=== PATIENT | female | born 1995 | race Two or more races ===

== ENCOUNTER 2018-04-05 11:19 | Emergency (ER) | payer OTHER ==
[~2018-04-05] VITALS: Ht 149.9 cm; Wt 73.0 kg
[2018-04-05] MEDS ORDERED: KETOROLAC 30MG/ML VIAL IM ONE (13:00)
[2018-04-05 13:22] VITALS: BP 106/59
== END 2018-04-05 13:22 | disposition home or self-care (01) ==
LOC: ER 13:06
DX: N64.4 Mastodynia (principal)
CPT/HCPCS: 96372; 99283; J1885

== ENCOUNTER 2020-07-29 12:49 | Emergency (ER) | payer SELFPAY ==
[~2020-07-29] VITALS: Ht 152.4 cm; Wt 75.0 kg
[2020-07-29] MEDS ORDERED: SODIUM CHLORIDE 0.9% 1,000 ML IV ONE (13:30)
[2020-07-29] MEDS ORDERED: KETOROLAC 30MG/ML VIAL IV ONE (13:30)
[2020-07-29 13:47] VITALS: BP 115/56
[2020-07-29 14:06] LABS: BASOPHILS % 0.4 % (0.0-2.0); EOSINOPHILS % 0.3 % (0.0-5.0); HEMATOCRIT. 40.5 % (36.0-48.0); LYMPHOCYTES % 29.6 % (20.0-50.0); MEAN CORPUSCULAR HEMOGLOBIN 30.7 pg (28.0-32.0); MEAN CORPUSCULAR VOLUME 88.4 fL (81.0-99.0); MEAN PLATELET VOLUME 11.9 fl (7.4-10.4); MONOCYTES % 7.5 % (2.0-8.0); NEUTROPHILS % 62.2 % (40.0-76.0); PLATELET 178 x1000/uL (130-400); RED BLOOD CELL COUNT 4.58 mill/uL (4.2-5.4); RED CELL DISTRIBUTION WIDTH 12.6 % (11.6-14.6)
[2020-07-29 14:10] LABS: CHLORIDE 106 mEq/L (98-107)
[2020-07-29 14:21] LABS: B-HCG QUANTITATIVE < 1 mIU/mL (<3)
[2020-07-29] MEDS ORDERED: NAPR-1176 PO (14:44)
== END 2020-07-29 15:03 | disposition home or self-care (01) ==
LOC: ER 12:49
DX: N93.8 Other specified abnormal uterine and vaginal bleeding (principal)
CPT/HCPCS: 36415; 76830; 76856; 80053; 81025; 84702; 85025; 96361; 96374; 99284; J1885; J7030